=== PATIENT | male | born 1945 | race Caucasian/White ===

== ENCOUNTER 2017-03-12 07:40 | Emergency (ER) | payer OTHER ==
[2017-03-12] MEDS ORDERED: IBUPROFEN 800 MG TAB PO ONE (09:57)
--- NOTE | 2017-03-12 10:08 | EDPHY ---
H & P Time Seen by Provider: 03/12/17 08:30 HPI/ROS: HPI Right wrist pain. 72-year-old male by private vehicle. He presents the emergency department complaining of atraumatic right wrist pain. He reports that he noticed the right wrist was bothering him last night before going to bed. He thinks that he fell asleep in his lazy Boy a and may have had an awkward position. There is no history of fall or other traumatic event. He reports that he woke up this morning and the pain was worse. He describes the pain as being in the dorsal radial aspect of the wrist as well as dorsal ulnar aspect of the distal wrist. He does not have any prior history of gout. No fever. No other complaints. ROS: Constitutional: No fever, no chills. No weakness. Musculoskeletal: No back pain. No neck pain. No myalgias or arthralgias. As above. Skin: No rashes. No lacerations or abrasions. Neurological: No focal weakness or altered sensation. Past medical history: Hypertension, diabetes, coronary artery disease with stents, hypothyroid, DVT. Primary care physician is Dr. Santa at the [facility]. Social history: Nonsmoker. Lives with his significant other. However this patient is disabled. Does not drink alcohol. Physical Exam: General Appearance: Alert, no distress. This patient is responding to questions appropriately and in full sentences. This patient appears well- hydrated and well-nourished. Eyes: Pupils equal and round no pallor or injection. No lid edema, erythema or injection. Right hand and wrist exam: There is no erythema, no warmth, no significant edema. He does have pain on palpation of the distal radial dorsal aspect of the wrist as well as the distal ulnar are dorsal aspect of the wrist. He does have some pain with axial compression of the wrist. No asymmetric swelling when compared to the left hand and wrist. The right hand is neurovascularly intact. The skin is intact. No ecchymosis, erythema, edema or other significant findings. Neurological: Motor sensory function is grossly intact. Cranial nerves are normal. Gait is normal. Skin: Warm and dry, no rashes. Extremities are symmetrical. All joints range without pain or impingement except for the right wrist. Psychiatric: No agitation. No depression. Database: EKG: Imaging: Right wrist x-ray series: Negative for fracture, subluxation, dislocation. Interpreted by me. Procedures: Emergency department course: Vital signs reviewed. Patient sent for x-rays from triage. On my evaluation of the patient I discussed results of his x-rays. He is very concerned that he will not be able to drive his truck, put on his jacket, run his errands because of the pain in his right wrist. I find no evidence of significant traumatic injury. Infectious etiology is unlikely. There is no significant erythema, warmth or edema. His presentation is more consistent with a possible gouty arthritis. Plan at this time will be to start the patient on high-dose ibuprofen 800 mg 3 times daily for the next few days. We will immobilize the wrist in a Velcro wrist splint. He will then follow up with his primary care physician on Wednesday for re-evaluation. I will also start him on colchicine, 0.6 mg daily. He he received both ibuprofen and culture seen in the emergency department. The patient got upset that we were not able to do more for him. I apologized to him. I explained at this time that the best treatment plan is as above. I had case management see him. Case management has arrange for follow- up through his primary care physician, Dr. Santa, this coming . He now feels comfortable with the treatment plan. Return to emergency department precautions were discussed with him. All of his questions were answered. He was discharged in good condition. Differential Diagnosis: The differential diagnosis on this patient includes but is not limited to right wrist arthritis, right wrist sprain, gouty arthritis of the right wrist. Septic arthritis unlikely. This represents a partial list of diagnoses considered. These considerations are based on history, physical exam, past history, reassessment and diagnostic testing. Smoking Status: Never smoked Constitutional: Initial Vital Signs Temperature (C) 37.1 C 03/12/17 07:46 Heart Rate 56 L 03/12/17 07:46 Respiratory Rate 19 03/12/17 07:46 Blood Pressure 107/58 L 03/12/17 07:46 O2 Sat (%) 92 03/12/17 07:46 O2 Delivery Mode Room Air Allergies/Adverse Reactions: No Known Allergies Allergy (Verified 08/25/11 18:07) Home Medications: Medication Instructions Recorded Aspirin [Aspirin 81mg (OTC)] 81 mg PO DAILY 08/25/11 Atorvastatin Calcium [Lipitor 20 20 mg PO DAILY 08/25/11 mg (RX)] Levothyroxine [Synthroid 112 mcg 112 mcg PO DAILY06 08/25/11 (RX)] Lisinopril/Hydrochlorothiazide 1 each PO DAILY 08/25/11 [Lisinopril-Hctz 10-12.5 mg Tab] Multivitamins [Multivitamin (OTC)] 1 each PO DAILY@1200 08/25/11 Pharmacy Completed 08/25/11 08/25/11 WARFARIN SODIUM [Coumadin] 10 mg PO MOWEFR@1600 08/25/11 Warfarin Sodium [Coumadin 7.5MG 7.5 mg PO SUTUTHSA@1600 08/25/11 (RX)] metFORMIN HCL [Glucophage 500 mg 500 mg PO BIDMEAL 08/25/11 (RX)] Colchicine [Colcrys] 0.6 mg PO DAILY #10 tablet 03/12/17 Medical Decision Making - Data Points Medications Given: Discontinued Medications Colchicine (Colchicine) 0.6 mg PO EDNOW ONE Stop: 03/12/17 10:58 Last Admin: 03/12/17 11:03 Dose: 0.6 mg Ibuprofen (Motrin) 800 mg PO EDNOW ONE Stop: 03/12/17 09:58 Last Admin: 03/12/17 10:03 Dose: 800 mg Departure - Departure Disposition: Home, Routine, Self-Care Clinical Impression: Right wrist sprain, Arthritis of wrist, right Condition: Good Instructions: Wrist Sprain (ED), Arthritis (ED) Additional Instructions: Read and follow provided instructions. You have an appointment on 03/18/17 at 11:45am with your PCP, Dr. Santa. If you need to cancel or reschedule please call them as soon as possible. [phone] Keep your right wrist immobilized in the wrist splint when up and about an active. Follow-up with your primary care physician Dr. Santa, on for re- evaluation. At this time for the therapy for possible gouty arthritis can be considered. Take ibuprofen, 800 mg, every 8 hr which is 3 times daily for the next 3-4 days. Take medication as prescribed. Return to the emergency department for worsening pain, fever, swelling, discoloration your wrist or other serious concerns. Referrals: Ori Santa MD [Primary Care Provider] - As per Instructions Prescriptions: Colchicine [Colcrys] 0.6 mg PO DAILY #10 tablet
[2017-03-12] MEDS ORDERED: COLCHICINE 0.6 MG CAP/TAB PO ONE (10:57)
[2017-03-12 11:16] VITALS: BP 116/81; PULSE 82; RESP 16; TEMP 98.7; O2SAT 99
--- NOTE | 2017-03-12 17:49 | ASMTCMCOM ---
CM Note CRUZITO Note Notes: Spoke with patient extensively about his right wrist pain and how he needs to follow-up outpatient with his PCP, Dr. Santa. Called and made an appt for pt with Dr Santa next 03/18 at 11:30am. Patient agreeable to this plan. Patient states he drove himself here to the ED and although it may be uncomfortable and cause pain, he states he feels safe driving himself home. Patient verbally expressing and perseverating on possible loss of ability to care for himself. Patient concerned about his ability to maintain ADL functions, patient reassured that the ED MD has ruled out any acute injury, fracture, etc. and that patient is safe to wear a wrist splint for support and comfort. [facility] was [facility] information [facility] services to provide to his roommate, Jesus, who relies heavily on the patient for transportation to and from various medical appointments of his own. Patient also provided information on Meals on Wheels, [facility] Agency on Aging for possible help with snow-shoveling, etc., and also information on [employer], if he turns out to be eligible. CM availabe for further assistance. Date Signed: 03/12/2017 05:49 PM Electronically Signed By:Bonnie Perez RN
--- NOTE | 2017-03-12 17:54 | ASDISCHSUM ---
Discharge Information Plan Status:Home with No Needs Medically Cleared to Leave: Discharge Date:03/12/2017 11:14 AM CM D/C Disposition:Home, Routine, Self-Care ADT D/C Disposition:Home, Routine, Self-Care Projected Discharge Date:03/12/2017 11:14 AM Transportation at D/C:Self Discharge Delay Reason: Follow-Up Date:03/12/2017 11:14 AM Discharge Slot: Final Diagnosis: Placement Information Patient Contact Information Contact Name:BONNY Relationship:Friend Address:[address] [place] [address] City:[place] Alternate Phone: [facility]/Zip Code:[place] [address] Email: Financial Information Financial Class: Primary Plan Desc:MEDICARE OUTPATIENT Primary Plan Number:[id number] [facility] Secondary Plan Number:[id number] Assessment Information [facility] CM Progress Note CM Note CM Note Notes: Spoke with patient extensively about his right wrist pain and how he needs to follow-up outpatient with his PCP, Dr. Santa. Called and made an appt for pt with Dr Santa next 03/18 at 11:30am. Patient agreeable to this plan. Patient states he drove himself here to the ED and although it may be uncomfortable and cause pain, he states he feels safe driving himself home. Patient verbally expressing and perseverating on possible loss of ability to care for himself. Patient concerned about his ability to maintain ADL functions, patient reassured that the ED MD has ruled out any acute injury, fracture, etc. and that patient is safe to wear a wrist splint for support and comfort. Patient was [facility] information [facility] services to provide to his roommate, Jesus, who relies heavily on the patient for transportation to and from various medical appointments of his own. Patient also provided information on Meals on Wheels, [facility] Agency on Aging for possible help with snow-shoveling, etc., and also information on [employer], if he turns out to be eligible. CRUZITO robin for further assistance. Date Signed: 03/12/2017 05:49 PM Electronically Signed By:Bonnie Perez RN LACE LACE Acuity / Level of Care Answers: No. Comorbidities - select Answers: Diabetes without all that apply complications Emergency dept visits in Answers: 1 last 6 months Score: 2 Date Signed: 03/12/2017 05:53 PM Electronically Signed By:Bonnie Perez RN Intervention Information
== END 2017-03-12 11:14 | disposition home or self-care (01) ==
DX: S63.501A Unspecified sprain of right wrist, initial encounter (principal); M19.041 Primary osteoarthritis, right hand; I10 Essential (primary) hypertension; E11.9 Type 2 diabetes mellitus without complications; I25.10 Atherosclerotic heart disease of native coronary artery without angina pectoris; Z95.5 Presence of coronary angioplasty implant and graft; Z79.82 Long term (current) use of aspirin; Z79.01 Long term (current) use of anticoagulants; X58.XXXA Exposure to other specified factors, initial encounter
CPT/HCPCS: 73110; 99283; L3807